=== PATIENT | female | born 1970 | race Caucasian/White ===

== ENCOUNTER → 2022-12-10 08:56 | Outpatient (CLI) | payer OTHER, SELFPAY ==
--- NOTE | ~2022-12-10 | MMUS_ITS ---
EXAMINATION: MM diagnostic ericka BI w brooke, US breast RT limited HISTORY: Right breast focal asymmetry and left breast calcifications on screening mammogram TECHNIQUE: Additional 3-D tomosynthesis images of the right breast were performed and synthetic 2-D i mages were generated. Magnification views of the left breast are obtained. CAD analysis was submitted and interpreted. High resolution limited right breast ultrasound was performed. COMPARISON: 09/08/2022 BREAST PARENCHYMAL COMPOSITION: There are scattered areas of fibroglandular density. FINDINGS: MAMMOGRAPHIC FINDINGS: Left breast: There are calcifications in the upper outer quadrant of the breast which appear to be pr edominantly round in morphology. No suspicious mass or architectural distortion are identified. Right breast: The right breast focal asymmetry described on screening mammogram does not definitely p ersist with spot compression. ULTRASOUND: There is a 7 mm x 4 mm oval, circumscribed, parallel, hypoechoic mass with posterior acoustic enhance ment and no internal vascularity at the 10:00 location 3 cm from the nipple with imaging features sug gestive of clustered microcysts. An 8 mm x 3 mm mass with similar sonographic features is also noted at the 10:00 location, 3 cm from the nipple. A 6 mm x 4 mm mass with similar sonographic features is seen at the 12:00 location 4 cm from the nipple. IMPRESSION: 1. Probably benign right breast masses and left breast calcifications. 2. Follow-up bilateral diagnostic mammogram and right breast ultrasound in six months are recommended . BI-RADS category 3, probably benign findings. Reviewed, dictated and finalized at location A. IMPRESSION: 1. Probably benign right breast masses and left breast calcifications. 2. Follow-up bilateral diagnostic mammogram and right breast ultrasound in six months are recommended. BI-RADS category 3, probably benign findings.
== END ==
PROVIDERS: PCP Family Medicine; Visit Provider Family Medicine
DX: R92.8 Other abnormal and inconclusive findings on diagnostic imaging of breast (principal)
CPT/HCPCS: 76642; 77062; 77066; G0279

== ENCOUNTER 2023-08-04 08:49 | Outpatient (CLI) | payer OTHER, SELFPAY ==
--- NOTE | ~2023-08-04 | MMUS_ITS ---
EXAMINATION: MM diagnostic ericka BI w brooke, US breast RT limited HISTORY: Follow-up breast asymmetry TECHNIQUE: Additional 3-D tomosynthesis images of the breasts were performed and synthetic 2-D images were generated. CAD analysis was submitted and interpreted. High resolution Limited right breast ult rasound was performed. COMPARISON: Comparison to multiple prior studies sequentially, with oldest reviewed study dated 06/26. BREAST PARENCHYMAL COMPOSITION: Not dense: There are scattered areas of fibroglandular density. FINDINGS: MAMMOGRAPHIC FINDINGS: The breasts are stable. No suspicious masses, calcifications or architectural distortion in either br east to suggest malignancy. ULTRASOUND: Limited right breast ultrasound: At 10:00, 3 cm from the nipple there is an oval hypoechoic circumscr ibed parallel oriented mass without posterior features or internal vascularity measuring 6 mm. Also a t this location there is an adjacent oval hypoechoic 9 mm mass with parallel orientation, no posterio r features and no internal vascularity, likely benign. 12:00, 4 cm from the nipple, there is a 4 mm c yst. IMPRESSION: 1. Probable benign right breast masses. 2. Recommend 6 month follow-up Limited right breast ultrasound BI-RADS category 3, probably benign findings. Reviewed, dictated and finalized at location A. IMPRESSION: 1. Probable benign right breast masses. 2. Recommend 6 month follow-up Limited right breast ultrasound BI-RADS category 3, probably benign findings.
== END 2023-08-04 08:50 ==
PROVIDERS: Visit Provider Family Medicine
DX: R92.8 Other abnormal and inconclusive findings on diagnostic imaging of breast (principal)
CPT/HCPCS: 76642; 77062; 77066; G0279

== ENCOUNTER 2024-07-21 08:58 | Outpatient (CLI) | payer BC, SELFPAY ==
--- NOTE | ~2024-07-21 | MMUS_ITS ---
EXAMINATION: MM diagnostic ericka BI w brooke, US breast LT complete, US breast RT limited HISTORY: Dense breast. Follow-up cysts. TECHNIQUE: Additional 3-D tomosynthesis images of the breasts were performed and synthetic 2-D images were generated. CAD analysis was submitted and interpreted. High resolution complete left and Limite d right breast ultrasound was performed. COMPARISON: Comparison to multiple prior studies sequentially, with oldest reviewed study dated 07/26. BREAST PARENCHYMAL COMPOSITION: Not dense: There are scattered areas of fibroglandular density. FINDINGS: MAMMOGRAPHIC FINDINGS: There are no suspicious masses, calcifications or architectural distortion in either breast to sugges t malignancy. ULTRASOUND: Complete US of all 4 quadrants of the left breast/s and retroareolar region was reviewed. At 12:00, 4 cm from the nipple there is a 7 mm cyst. At 12:00, 4 cm from the nipple there is an irregular shaped oval heterogeneous predominantly hypoechoic 8mm mass without internal vascularity or posterior featu res, possibly a cluster of microcysts. At 5:00, 4.5 cm from the nipple there is a 4 mm cyst. At 6:00, 6 cm from the nipple there is an oval encapsulated circumscribed parallel oriented hypoechoic mass w ith smooth margins measuring 7 x 3 x 6 mm. Limited right breast ultrasound: 10-11:00, 3 cm from the nipple there is an oval hypoechoic parallel oriented mass measuring 11 mm with heterogeneous internal echoes, unchanged from prior study. At 10:0 0, 3 cm from the nipple there is an oval hypoechoic 7 mm mass without significant change from prior e xamination, likely benign. At 12:00, 4 cm from the nipple there is an 8 mm oval hypoechoic mass with echogenic hilum, likely benign intramammary lymph node. IMPRESSION: 1. Probable benign bilateral breast masses. 2. Recommend 6 month follow-up bilateral mammogram and Limited bilateral breast ultrasound BI-RADS category 3, probably benign findings. Reviewed, dictated and finalized at location B. IMPRESSION: 1. Probable benign bilateral breast masses. 2. Recommend 6 month follow-up bilateral mammogram and Limited bilateral breast ultrasound BI-RADS category 3, probably benign findings. IMPRESSION: 1. Probable benign bilateral breast masses. 2. Recommend 6 month follow-up bilateral mammogram and Limited bilateral breast ultrasound BI-RADS category 3, probably benign findings.
== END 2024-07-21 08:59 | disposition home or self-care (01) ==
PROVIDERS: PCP Family Medicine
DX: R92.8 Other abnormal and inconclusive findings on diagnostic imaging of breast (principal)
CPT/HCPCS: 76641; 76642; 77062; 77066; G0279